=== PATIENT | female | born 1975 | race Caucasian/White ===

== ENCOUNTER 2019-07-26 18:35 | Emergency (ER) | payer BC ==
[~2019-07-26] VITALS: Ht 170.2 cm; Wt 64.0 kg
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
[2019-07-26] MEDS ORDERED: KETOROLAC TROMETHAMINE INJ 30 MG/ML VIAL ONE (19:27)
[2019-07-26] MEDS ORDERED: KETOROLAC TROMETHAMINE INJ 60 MG/2 ML VIAL IM ONE (19:30)
[2019-07-26 21:08] VITALS: BP 131/77
== END 2019-07-26 21:08 | disposition home or self-care (01) ==
LOC: ER 18:42
DX: S62.316A Displaced fracture of base of fifth metacarpal bone, right hand, initial encounter for closed fracture (principal); F31.9 Bipolar disorder, unspecified; W22.01XA Walked into wall, initial encounter; Y93.89 Activity, other specified; Y92.89 Other specified places as the place of occurrence of the external cause; Y99.8 Other external cause status
CPT/HCPCS: 29125; 73130; 96372; 99283; J1885

== ENCOUNTER 2019-10-22 08:55 | Emergency (ER) | payer BC ==
[~2019-10-22] VITALS: Ht 170.2 cm; Wt 65.3 kg
--- NOTE | 2019-10-22 09:10 | NUR ---
patient came in to the er c/o cough and congestion, SOB, weakness x 2 days, on room air, breathing evenly and unlabored. kept comofrtable, will continue to monitor accordingly.
[2019-10-22] MEDS ORDERED: IV NS 0.9% 1,000 ML IV ONE (09:30)
[2019-10-22 09:37] LABS: BASOPHILS % (AUTO) 1.2 % (0.0-2.0); EOSINOPHILS % (AUTO) 1.9 % (0.0-6.0); HEMATOCRIT 35 % (33-45); HEMOGLOBIN 11.2 g/dL (11.5-14.8); LYMPHOCYTES # (AUTO) 1.3 /CMM (0.8-4.8); LYMPHOCYTES % (AUTO) 39.1 % (20.0-44.0); MEAN CORPUSCULAR HGB CONC 32 g/dl (31.0-36.0); MEAN CORPUSCULAR VOLUME 74 fL (82-100); MONOCYTES # (AUTO) 0.5 /CMM (0.1-1.30); MONOCYTES % (AUTO) 14.8 % (2.0-12.0); NEUTROPHILS # (AUTO) 1.4 /CMM (1.8-8.9); PLATELET COUNT (AUTO) 276 /CMM (150-450); RED BLOOD CELL COUNT(AUTO) 4.73 MIL/uL (4.0-5.2); WHITE BLOOD COUNT (AUTO) 3.3 K/uL (4.3-11.0)
[2019-10-22 09:44] LABS: CALCIUM, SERUM 8.8 mg/dL (8.5-10.1); CREATININE 0.7 mg/dL (0.6-1.3); POTASSIUM 4.1 mmol/L (3.5-5.1)
[2019-10-22 09:50] LABS: ALBUMIN 3.8 g/dL (3.4-5.0); BILIRUBIN,DIRECT 0.1 mg/dL (0.0-0.2); BILIRUBIN,TOTAL 0.2 mg/dL (0.2-1.0); TOTAL PROTEIN, SERUM 7.3 g/dL (6.4-8.2)
[2019-10-22 10:35] VITALS: BP 135/71
--- NOTE | 2019-10-22 10:35 | NUR ---
Patient discharged to home in stable condition. Written and verbal after care instructions given. Patient verbalizes understanding of instruction.IV removed. Catheter intact and site benign. Pressure and 4x4 applied to site. No bleeding noted.
[2019-10-22 11:02] LABS: EOSINOPHILS % (MANUAL) 1 % (0-4); LYMPHOCYTES % (MANUAL) 49 % (16-48); MONOCYTES % (MANUAL) 8 % (0-11.0); NEUTROPHILS % (MANUAL) 42 (42-76)
== END 2019-10-22 10:35 | disposition home or self-care (01) ==
LOC: ER 09:00
DX: J06.9 Acute upper respiratory infection, unspecified (principal)
CPT/HCPCS: 36415; 71045; 80048; 80076; 85025; 87804 ×2; 99284; J7030

== ENCOUNTER 2020-06-04 20:36 | Emergency (ER) | payer BC ==
[~2020-06-04] VITALS: Ht 170.2 cm; Wt 71.7 kg
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
--- NOTE | 2020-06-04 20:58 | NUR ---
RADIOLOGY AT BEDSIDE
[2020-06-04] MEDS ORDERED: KETOROLAC TROMETHAMINE INJ 60 MG/2 ML VIAL IM ONE ×2 (21:17→21:30)
--- NOTE | 2020-06-04 21:38 | NUR ---
EMT AT BEDSIDE
--- NOTE | 2020-06-04 21:38 | NUR ---
PT DENIES PAIN
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
[2020-06-04 21:44] VITALS: BP 129/79
== END 2020-06-04 21:48 | disposition home or self-care (01) ==
LOC: ER 20:36
DX: S82.892A Other fracture of left lower leg, initial encounter for closed fracture (principal); X50.1XXA Overexertion from prolonged static or awkward postures, initial encounter; Y93.01 Activity, walking, marching and hiking; Y92.89 Other specified places as the place of occurrence of the external cause; Y99.8 Other external cause status
CPT/HCPCS: 29515; 73610; 96372; 99283; J1885